=== PATIENT | female | born 1960 | race Caucasian/White ===

== ENCOUNTER 2019-03-07 10:48 | Emergency (ER) | payer MEDICARE, MEDICAID, SELFPAY ==
[2019-03-07 11:17] VITALS: BP 148/97; PULSE 75; RESP 16; TEMP 36.3; O2SAT 96
--- NOTE | 2019-03-07 11:22 | ED_ITS ---
Entered by Yola Ramos, acting as scribe for Mar 07, 2019 10:48 HPI - General Adult General: Chief complaint: Dizziness Stated complaint: N/dizzy, light headed Time Seen by Provider: 03/07/19 11:18 Source: patient Mode of arrival: ambulatory Limitations: no limitations History of Present Illness: HPI narrative: 59 yo female presents with congestion and dizziness. pt states this started 6 days ago but worsened today. pt has had a headache. pt states she was seen at [facility] and they gave her Levaquin on Friday and it has not helped. pt denies any other symptoms at this time. Onset (ago): day(s) (6 days ago) Location: head Pain Consistency: constant Relieving factors: none Exacerbating factors: none Associated symptoms: Reports headache(s); Deny chest pain, dyspnea, nausea, rash or vomiting Treatments prior to arrival: other (Levaquin from PCP) Review of Systems Const: Reports: fever and body aches; Denies: chills Eyes: Denies: change in vision ENMT: Denies: throat pain or mouth pain Card: Denies: chest pain Resp: Reports: non-productive cough and chest congestion; Denies: shortness of breath GI: Denies: abdominal pain, nausea, vomiting or diarrhea : Denies: difficulty urinating Musc: Denies: back pain or joint pain Skin/Breast: Denies: rash Neuro: Reports: headache; Denies: behavioral changes Psych: Denies: depression Endo: Denies: excessive urination Anders/Lymph: Denies: easy bruising All/Imm: Denies: hives PFSH ED PFSH: Statuses (acute, chronic, etc) shown below reflect problem list status as previously entered and may not be historically accurate Social History Smoking and tobacco status: current every day smoker Physical Exam Const: COMMON NORMALS: no apparent distress and healthy appearing HENMT: COMMON NORMALS: normocephalic and external nose normal HEAD & SCALP: normocephalic NOSE: external nose normal and no nasal discharge (nasal dischage) Eye: COMMON NORMALS: PERRL PUPIL: Yes PERRL Neck/C-Spine: COMMON NORMALS: full ROM and no lymphadenopathy Chest: COMMONS NORMALS: inspection of chest normal Resp: COMMON NORMALS: normal respiratory effort and clear to auscultation bilaterally AUSCULTATION: clear to auscultation bilaterally Cardio: COMMON NORMALS: regular rate and regular rhythm RATE: regular rate RHYTHM: regular rhythm GI: COMMON NORMALS: soft to palpation PALPATION: Yes soft Extremity: COMMON NORMALS: normal to inspection, full ROM and normal capillary refill Psych: COMMON NORMALS: mental status grossly normal and cooperative Skin: COMMON NORMALS: no rashes or lesions noted GENERAL SKIN EXAM: no rashes or lesions noted Course Vital Signs: Vital signs: Vital Signs Temperature 97.3 F L 03/07/19 11:17 Pulse Rate 78 03/07/19 13:34 Respiratory Rate 15 03/07/19 13:34 Blood Pressure 119/82 03/07/19 13:34 Pulse Oximetry 98 03/07/19 13:34 MDM - General Adult MDM Narrative: Medical decision making narrative: Patient presents with a headache that is likely tension headache from a sinus infection. Patient is currently on Levaquin and she is to continue. Patient is to continue decongestant for her head congestion. She has no signs of meningitis or subarachnoid hemorrhage. Patient is to follow-up with primary care doctor in 3 to 5 days return if worsening. Lab Data: Labs: Lab Results 03/07/19 03/07/19 Range/Units 11:50 11:50 WBC 6.5 (4.0-10.0) 10^3/ uL RBC 4.58 (4.1-5.3) 10^6/u L Hgb 14.6 (11.5-15.3) g/dL Hct 43.6 (37.0-47.0) % MCV 95.2 (81-99) fL MCH 31.9 (28.0-34.0) pg MCHC 33.5 (30.0-36.0) g/dL RDW 13.0 (12.1-15.1) % Plt Count 237 (130-400) 10^3/c mm MPV 10.7 H (7.4-10.4) fL Neut % (Auto) 62.2 % Lymph % (Auto) 26.9 % [place] % (Auto) 7.4 % Eos % (Auto) 1.9 % Baso % (Auto) 1.1 % Neut # (Auto) 4.0 (1.8-7.7) 10^3/u L Lymph # (Auto) 1.7 (0.8-4.8) 10^3/u L [place] # (Auto) 0.5 (0.2-0.9) 10^3/u L Eos # (Auto) 0.1 (0.0-0.8) 10^3/u L Baso # (Auto) 0.1 (0.0-0.1) 10^3/u L Nucleated RBC % (a uto) 0 % Nucleated RBCs # 0.0 /100WBC Sodium 137 (136-145) mmol/L Potassium 4.4 (3.5-5.1) mmol/L Chloride 101 (98-107) mmol/L Carbon Dioxide 24 (22-29) mmol/L Anion Gap 16.4 (5-19) BUN 14 (8-23) mg/dL Creatinine 0.8 (0.5-0.9) mg/dL GFR Calculation 73.2 L (90-130) mL/min Glucose 129 H (74-106) mg/dL Calcium 10.3 H (8.8-10.2) mg/Dl Total Bilirubin 0.2 (0.15-1.2) mg/dL AST 27 (0-32) U/L ALT 30 (0-33) U/L Alkaline Phosphata se 74 (35-105) IU/L Total Protein 6.6 (6.6-8.7) g/dL Albumin 5.1 (3.5-5.2) g/dL Globulin 1.5 (1.3-4.6) g/dL Discharge Plan Discharge Patient Disposition: Home, Self-Care Clinical Impression: Headache Qualifiers: Headache type: tension-type Headache chronicity pattern: acute headache Intractability: not intractable Qualified Code(s): G44.209 - Tension-type headache, unspecified, not intractable Sinusitis Qualifiers: Sinusitis location: unspecified location Chronicity: acute Recurrence: not specified as recurrent Qualified Code(s): J01.90 - Acute sinusitis, unspecified Condition: Stable Prescriptions: No Action multivitamin Tablet 1 tab PO DAILY RF: 0 cyclobenzaprine 10 mg tablet 10 mg PO TID RF: 0 omeprazole 40 mg capsule,delayed release(DR/EC) 40 mg PO DAILY RF: 0 trazodone 100 mg tablet 100 mg PO BEDTIME RF: 0 levothyroxine 125 mcg tablet 125 mcg PO DAILY RF: 0 indomethacin 50 mg capsule 50 mg PO BID PRN (Reason: GOUT) RF: 0 levofloxacin 500 mg tablet 500 mg PO DAILY RF: 0 vitamin B complex Capsule 1 cap PO DAILY RF: 0 Vitamin D3 1,000 unit Capsule 1,000 unit PO DAILY RF: 0 Discharge Orders: Discharge Order (Routine); Ordered 03/07/19 Ordered By: Trevon Wiggins Referrals: Robert Long, [Family Provider] - 1-3 days Discharge Diet: Advance as tolerated Discharge Activity: Resume usual activity Discharge Date/Time: 03/07/19 13:36 Coding Level of Care Code ED Pasta Maker for Chg Fwd Exam Problem Focused The documentation recorded by the Richard bustillos Bridget Annette, accurately reflects the service I personally performed and the decisions made by Rosalie stone Korby, MD Mar 07, 2019 10:48
--- NOTE | 2019-03-07 11:24 | XRR_ITS ---
PROCEDURE INFORMATION: Exam: XR Chest, 1 View Exam date and time: 03/07/2019 11:25 AM Age: 59 years old Clinical indication: Cough; Patient HX: Smoker TECHNIQUE: Imaging protocol: XR of the chest Views: 1 view. COMPARISON: CR Chest 2 views* [id number] 09/27/2017 3:55 PM FINDINGS: Lungs: Probable COPD with large lung findings. Pleural space: Unremarkable. No pleural effusion. No pneumothorax. Heart/Mediastinum: Unremarkable. No cardiomegaly. Bones/joints: Mild scoliosis. XR/XR chest 1V portable [id number] IMPRESSION: No acute findings.
[2019-03-07 11:30] VITALS: BP 148/97; PULSE 70; RESP 15; O2SAT 96
[2019-03-07] MEDS: ondansetron 2 mg/ML SDV 2 mL 4 MG IVP (11:47)
[2019-03-07] MEDS: sodium chloride 0.9% 1,000 ML 999 ML IV (11:47)
[2019-03-07 12:18] LABS: Basophils # 0.1 10^3/uL (0.0-0.1); Basophils % 1.1 %; Eosinophils # 0.1 10^3/uL (0.0-0.8); Eosinophils % 1.9 %; Hematocrit 43.6 % (37.0-47.0); Hemoglobin 14.6 g/dL (11.5-15.3); Lymphocytes # 1.7 10^3/uL (0.8-4.8); Lymphocytes % 26.9 %; Mean Corpuscular HGB Conc 33.5 g/dL (30.0-36.0); Mean Corpuscular Hemoglobin 31.9 pg (28.0-34.0); Mean Corpuscular Volume 95.2 fL (81-99); Mean Platelet Volume 10.7 fL (7.4-10.4); Monocytes # 0.5 10^3/uL (0.2-0.9); Monocytes % 7.4 %; Neutrophils % 62.2 %; Nucleated Red Blood Cells % 0 %; Platelet Count 237 10^3/cmm (130-400); Red Blood Count 4.58 10^6/uL (4.1-5.3); White Blood Count 6.5 10^3/uL (4.0-10.0)
--- NOTE | 2019-03-07 12:43 | PC.NURSE ---
Patient up to restroom. Patient able to ambulate without difficultly. No urine collection orders at this time.
[2019-03-07 13:00] VITALS: BP 131/89; PULSE 71; RESP 15; O2SAT 96
[2019-03-07 13:04] LABS: Alanine Aminotransferase 30 U/L (0-33); Albumin Level 5.1 g/dL (3.5-5.2); Alkaline Phosphatase 74 IU/L (35-105); Anion Gap 16.4 (5-19); Aspartate Amino Transferase 27 U/L (0-32); Blood Urea Nitrogen 14 mg/dL (8-23); Calcium 10.3 mg/Dl (8.8-10.2); Carbon Dioxide 24 mmol/L (22-29); Chloride 101 mmol/L (98-107); Globulin 1.5 g/dL (1.3-4.6); Glomerular Filtration Rate 73.2 mL/min (90-130); Glucose 129 mg/dL (74-106); Potassium 4.4 mmol/L (3.5-5.1); Sodium 137 mmol/L (136-145); Total Bilirubin 0.2 mg/dL (0.15-1.2); Total Protein 6.6 g/dL (6.6-8.7)
[2019-03-07 13:34] VITALS: BP 119/82; PULSE 78; RESP 15; O2SAT 98
== END 2019-03-07 13:36 | disposition home or self-care (01) ==
PROVIDERS: Emergency Provider Emergency Medicine; Family Provider Family Medicine
DX: J01.90 Acute sinusitis, unspecified (principal); G44.209 Tension-type headache, unspecified, not intractable; F17.210 Nicotine dependence, cigarettes, uncomplicated
CPT/HCPCS: 36415; 71045; 80053; 85025; 96360; 96374; 99281; J2405; J7030

== ENCOUNTER → 2019-12-16 10:45 | Outpatient (BNVA) | payer MEDICARE, MEDICAID, SELFPAY | PROVIDERS: Family Provider Family Medicine; Visit Provider Family Medicine | DX: Z20.828 Contact with and (suspected) exposure to other viral communicable diseases (principal) | CPT/HCPCS: 87635 ==

== ENCOUNTER → 2019-12-28 12:42 | Outpatient (BNVA) | payer MEDICARE, MEDICAID, SELFPAY | PROVIDERS: Family Provider Family Medicine; Visit Provider Internal Medicine Rheumatology | DX: I73.00 Raynaud's syndrome without gangrene (principal); Z79.899 Other long term (current) drug therapy; R76.8 Other specified abnormal immunological findings in serum; M19.041 Primary osteoarthritis, right hand; M19.042 Primary osteoarthritis, left hand; M79.7 Fibromyalgia; R25.2 Cramp and spasm; F17.210 Nicotine dependence, cigarettes, uncomplicated | CPT/HCPCS: 36415; 99203 ==

== ENCOUNTER 2019-12-28 14:22 | Outpatient (CLI) | payer MEDICARE, MEDICAID, SELFPAY ==
--- NOTE | 2019-12-28 14:29 | XR_ITS ---
WS: [id number] HAND LEFT TECHNIQUE: 3 views of the left hand CLINICAL INFORMATION: osteoarthritis COMPARISON: None. FINDINGS: Mild narrowing of the radiocarpal joint. Minimal degenerative arthritis the first CMC. Normal metacar pals. Normal MP joints. No erosive changes. XR/XR hand LT min 3V* [id number] IMPRESSION: Mild degenerative arthritis as described above. Left hand otherwise unremarkabl e.
--- NOTE | 2019-12-28 14:29 | XR_ITS ---
WS: [id number] FOOT LEFT TECHNIQUE: 3 views of the left foot CLINICAL INFORMATION: osteoarthritis COMPARISON: None. FINDINGS: Osteopenia. Normal anatomic alignment. No acute fractures. No significant erosive changes. Minimal IP joint narrowing. Normal calcaneus. Normal plantar soft tissues. XR/XR foot LT min 3V* [id number] IMPRESSION: Unremarkable left foot
--- NOTE | 2019-12-28 14:29 | XR_ITS ---
WS: [id number] FOOT RIGHT TECHNIQUE: 3 views of the right foot CLINICAL INFORMATION: osteoarthritis COMPARISON: None. FINDINGS: Mild hallux valgus. Osteopenia. A few tiny erosions of the metacarpal heads. Minimal IP joint narrowi ng. Hammertoe deformities. Normal calcaneus and plantar soft tissues. XR/XR foot RT min 3V* [id number] IMPRESSION: 1. Mild hallux valgus with osteopenia. 2. A few small erosions involving the metatarsal heads.
--- NOTE | 2019-12-28 14:29 | XR_ITS ---
WS: [id number] HAND RIGHT TECHNIQUE: 3 views of the right hand CLINICAL INFORMATION: osteoarthritis COMPARISON: None. FINDINGS: Mild narrowing of the radiocarpal joint. Normal metacarpals. Advanced asymmetric degenerative narrowi ng involving the second DIP joint with complete loss of joint space and flexion deformity. Mild IP sandro int narrowing involving the fourth DIP joint. XR/XR hand RT min 3V* [id number] IMPRESSION: 1. Advanced asymmetric joint space narrowing involving the second DIP with com plete loss of the joint space and periarticular osteophytes
== END 2019-12-28 14:23 | disposition home or self-care (01) ==
LOC: RADWPI 14:26
PROVIDERS: Family Provider Family Medicine; PCP Family Medicine; Visit Provider Internal Medicine Rheumatology
DX: M19.041 Primary osteoarthritis, right hand (principal); M19.042 Primary osteoarthritis, left hand; Z79.899 Other long term (current) drug therapy; I73.00 Raynaud's syndrome without gangrene; R25.2 Cramp and spasm; R76.8 Other specified abnormal immunological findings in serum; M19.072 Primary osteoarthritis, left ankle and foot; M19.071 Primary osteoarthritis, right ankle and foot; M25.742 Osteophyte, left hand; M20.11 Hallux valgus (acquired), right foot; M85.871 Other specified disorders of bone density and structure, right ankle and foot
CPT/HCPCS: 73130; 73630; 80076; 82306; 82310; 82565; 83735; 84132; 85025; 85651; 86140; 86431

== ENCOUNTER → 2020-02-09 10:29 | Outpatient (BNVA) | payer MEDICARE, MEDICAID, SELFPAY | PROVIDERS: Family Provider Family Medicine; PCP Family Medicine; Visit Provider Internal Medicine Rheumatology | DX: M19.041 Primary osteoarthritis, right hand (principal); M19.042 Primary osteoarthritis, left hand; I73.00 Raynaud's syndrome without gangrene; R76.8 Other specified abnormal immunological findings in serum; M79.7 Fibromyalgia; F17.210 Nicotine dependence, cigarettes, uncomplicated | CPT/HCPCS: 99213 ==

== ENCOUNTER 2020-08-15 10:22 | Outpatient (CLI) | payer MEDICARE, MEDICAID, SELFPAY ==
--- NOTE | 2020-08-15 10:40 | XR_ITS ---
WS: [id number] Exam: XR ribs LT 2V* [id number] Date/Time of Exam: 08/15/2020 10:53 AM Reason For Exam: HX OF ACCIDENTAL FALL/L SIDED RIB PAIN No acute rib fracture or pneumothorax noted. No pleural or pulmonary reactive changes. XR/XR ribs LT 2V* [id number] IMPRESSION: 1. Negative left rib study.
--- NOTE | 2020-08-15 10:40 | XR_ITS ---
WS: [id number] Exam: XR chest 2V* [id number] Date/Time of Exam: 08/15/2020 10:53 AM Reason For Exam: HX OF ACCIDENTAL FALL/L SIDED RIB PAIN The lungs are clear and fully expanded. Normal cardiomediastinal structures. No pleural effusions. Jelani ny structures are intact. Mild thoracic scoliosis. XR/XR chest 2V* [id number] IMPRESSION: 1. No acute cardiopulmonary finding.
== END 2020-08-15 10:23 | disposition home or self-care (01) ==
PROVIDERS: PCP Family Medicine; Visit Provider Nurse Practitioner Family
DX: Z91.81 History of falling (principal); R07.81 Pleurodynia
CPT/HCPCS: 71046; 71100

== ENCOUNTER → 2021-03-13 15:25 | Outpatient (BNVA) | payer MEDICARE, MEDICAID, SELFPAY | PROVIDERS: PCP Family Medicine; Visit Provider Internal Medicine Rheumatology | DX: M15.4 Erosive (osteo)arthritis (principal); I73.00 Raynaud's syndrome without gangrene; Z79.899 Other long term (current) drug therapy; M79.7 Fibromyalgia; F17.200 Nicotine dependence, unspecified, uncomplicated | CPT/HCPCS: 99213; 99214 ==

== ENCOUNTER 2021-04-02 14:50 | Emergency (ER) | payer MEDICARE, MEDICAID, SELFPAY ==
[2021-04-02 15:01] VITALS: BP 107/74; PULSE 97; RESP 20; TEMP 36.8; O2SAT 94; BMI 19.5
--- NOTE | 2021-04-02 15:17 | XR_ITS ---
WS: [id number] XR chest 1V portable [id number] REASON FOR EXAM: cough, sob FINDINGS: The heart and mediastinum within normal limits. Compared to the examination of 08/15/2020, there is an unusual appearing lung opacity(s) in the lower left lower lung field overlying the left costophrenic angle. There is hazy density and a more focal o blong opacity. Mild thoracic scoliosis convex right. XR/XR chest 1V portable [id number] IMPRESSION: Left lower lung abnormality as above . The chronicity is unknown. The etiology and significance is uncertain (very unlikely neoplasm) and PA and lateral chest is recommended. Most likely inflammatory and atelectasis.
== END 2021-04-02 23:11 | disposition left against medical advice (07) ==
PROVIDERS: Emergency Provider Family Medicine; PCP Family Medicine
DX: Z53.21 Procedure and treatment not carried out due to patient leaving prior to being seen by health care provider (principal)
CPT/HCPCS: 71045

== ENCOUNTER 2021-09-11 10:17 | Outpatient (CLI) | payer MEDICARE, MEDICAID, SELFPAY ==
--- NOTE | 2021-09-11 11:44 | PFTS_ITS ---
Date of Study:09/11/21 Date of Dictation: 09/15/2021 MECHANICS: Postbronchodilator forced vital capacity (FVC) is reduced. Postbronchodilator forced expiratory volume in one second (FEV1) is moderately reduced. FEV1/FVC is reduced. There is no significant postbronchodilator response FLOW VOLUME LOOP: Sloping of expiratory limb suggestive of airway obstruction . LUNG VOLUMES: Total lung capacity (TLC) is normal. Residual volume (RV) is increased suggestive of air trapping. DIFFUSING CAPACITY FOR CARBON MONOXIDE: Moderately reduced . INTERPRETATION: The spirometry showed moderate obstructive ventilatory defect. There is no significant postbronchodilator response. Lung volumes suggestive of moderate air trapping. There is moderate gas transfer defect. Clinical correlation recommended. [facility]
== END 2021-09-11 10:18 | disposition home or self-care (01) ==
LOC: RT 10:18
PROVIDERS: PCP Family Medicine; Visit Provider Family Medicine
DX: I73.00 Raynaud's syndrome without gangrene; M79.7 Fibromyalgia; M15.4 Erosive (osteo)arthritis; R06.02 Shortness of breath
CPT/HCPCS: 94060; 94618; 94726; 94729; 99214; J7614

== ENCOUNTER 2021-09-17 07:48 | Outpatient (CLI) | payer MEDICARE, MEDICAID, SELFPAY ==
--- NOTE | 2021-09-17 08:11 | CT_ITS ---
WS: [id number] CT CHEST WITHOUT INTRAVENOUS CONTRAST HISTORY: TACHYCARDIA/CHEST TIGHTNESS TECHNIQUE: Contiguous 5 mm axial imaging performed on the thorax. Coronal and sagittal reformats are submitted. All CT scans at [facility] use at least one of these dose optimization techniques: automated exposure control; mA and/or kV adjustment per patient size (includes targeted exams where dose is matched to clinical indication); or iterative reconstruction. CONTRAST: Omnipaque 350; 75 mL IV. DLP: 480.53 mGy.cm COMPARISON: 07/05/2015, chest radiograph 04/02/2021 Lungs and central airway: Pulmonary hyperexpansion. No pulmonary nodule or mass. No pneumonia. Pleura: Normal. No pleural effusion. Heart and pericardium: Heart is very mildly prominent. No pericardial effusion. There is a small amou nt of pericardial thickening which is unchanged. Mediastinum and lindsay: No adenopathy. Pericardial fluid filled recess posterior to the main pulmonary artery. Vessels: Mildly ectatic thoracic aorta 3.9 cm. Mild atherosclerosis. Normal size pulmonary artery. Chest wall and lower neck: No soft tissue masses. Upper abdomen: Very small hiatal hernia. Liver is enlarged on the localizer extending to the iliac cr est as before. Osseous structures: No destructive process. CT/CT chest w con* [id number] IMPRESSION: 1. Mild emphysema with no pneumonia or mass. 2. Mildly ectatic thoracic aorta with no aneurysm. 3. No pleural effusion. 4. Previously described opacification of the LEFT lung base on the radiograph of 04/02/2021 has resolved.
[2021-09-17 08:54] LABS: Blood Urea Nitrogen 9 mg/dL (8-23); Glomerular Filtration Rate 72.7 mL/min (90-130)
[2021-09-17] MEDS: iohexol 350 mg/mL 100 mL Btl IV (10:12)
== END 2021-09-17 07:49 | disposition home or self-care (01) ==
LOC: RAD 07:49
PROVIDERS: PCP Family Medicine; Visit Provider Family Medicine
DX: R00.0 Tachycardia, unspecified (principal); R06.02 Shortness of breath; R07.89 Other chest pain; J43.9 Emphysema, unspecified
CPT/HCPCS: 71260; 82565; 84520

== ENCOUNTER → 2021-10-08 11:17 | Outpatient (BNVA) | payer MEDICARE, MEDICAID, SELFPAY | PROVIDERS: PCP Family Medicine; Visit Provider Family Medicine | DX: Z79.899 Other long term (current) drug therapy (principal) | CPT/HCPCS: 80048 ==

== ENCOUNTER 2022-02-13 16:53 | Outpatient (CLI) | payer MEDICARE, MEDICAID, SELFPAY ==
--- NOTE | 2022-02-13 17:12 | XRR_ITS ---
PROCEDURE INFORMATION: Exam: XR Sacrum and Coccyx, 2 or More Views Exam date and time: 02/13/2022 5:13 PM Age: 62 years old Clinical indication: Injury or trauma; Blunt trauma (contusions or hematomas); Injury date: 02/13/22; Patient HX: Limb fell on back/tailbone area this morning, pain and numbness tailbone area; Additional info: Limb fell and hit posteror sacrum TECHNIQUE: Imaging protocol: XR of the sacrum and coccyx, inlet and outlet AP, lateral; 3 views. COMPARISON: CT pelvis con [id number] 04/16/2018 1:28 PM FINDINGS: Bones/joints: Normal. No acute fracture. Soft tissues: Normal. XR/XR sacrum coccyx min 2V [id number] IMPRESSION: No acute findings.
== END 2022-02-13 16:54 | disposition home or self-care (01) ==
LOC: RAD 17:00
PROVIDERS: PCP Family Medicine; Visit Provider Family Medicine
DX: M53.3 Sacrococcygeal disorders, not elsewhere classified (principal)
CPT/HCPCS: 72220

== ENCOUNTER → 2022-03-12 10:55 | Outpatient (BNVA) | payer MEDICARE, MEDICAID, SELFPAY | PROVIDERS: PCP Family Medicine; Visit Provider Internal Medicine Rheumatology | DX: M19.041 Primary osteoarthritis, right hand (principal); M19.042 Primary osteoarthritis, left hand; M18.12 Unilateral primary osteoarthritis of first carpometacarpal joint, left hand; I73.00 Raynaud's syndrome without gangrene; M79.7 Fibromyalgia | CPT/HCPCS: 20600; 99214; J1030 ==

== ENCOUNTER → 2022-04-01 09:33 | Outpatient (BNVA) | payer MEDICARE, MEDICAID, SELFPAY | PROVIDERS: PCP Family Medicine; Visit Provider Internal Medicine Rheumatology | DX: M18.12 Unilateral primary osteoarthritis of first carpometacarpal joint, left hand (principal); M19.041 Primary osteoarthritis, right hand; M19.042 Primary osteoarthritis, left hand; Z71.89 Other specified counseling | CPT/HCPCS: 20600; J1030 ==

== ENCOUNTER → 2022-05-16 12:56 | Outpatient (BNVA) | payer MEDICARE, MEDICAID, SELFPAY | PROVIDERS: PCP Family Medicine; Visit Provider Internal Medicine Pulmonary Disease | DX: I73.00 Raynaud's syndrome without gangrene (principal); J44.9 Chronic obstructive pulmonary disease, unspecified; F17.210 Nicotine dependence, cigarettes, uncomplicated | CPT/HCPCS: 99204 ==

== ENCOUNTER 2022-06-14 08:13 | Outpatient (CLI) | payer MEDICARE, MEDICAID, SELFPAY ==
--- NOTE | 2022-06-14 | MR_ITS ---
WS: [id number] MRI LUMBAR SPINE NONCONTRAST HISTORY: VERTEBROGENIC LBP COMPARISON: 04/24/2018 TECHNIQUE: Sagittal and axial multisequence imaging is submitted. Mild curvature thoracic and lumbar spines. Increase in thoracic kyphosis. No marrow edema or fracture. There is slight increased lumbar lordosis. L4 anterolisthesis by 3 mm. M ild progression since 2019. Disc spaces and vertebral body heights are well-preserved. Conus terminates normally at L1. L1-L2: Normal. L2-L3: Very slight annular disc bulging. No stenosis. L3-L4: Mild osteophytic ridging and annular disc bulging. There may be very tiny RIGHT paracentral di sc protrusion best seen on the sagittal imaging. Minimal encroachment into the subarticular recesses and mild ligamentum and flavum hypertrophy. Mild bilateral foraminal stenosis. L4-L5: Diffuse asymmetric disc bulging. Disc extends greatest to the LEFT. There is encroachment upon the ventral thecal sac and subarticular recesses. Near complete effacement of fat in the LEFT forame n. Bilateral facet joint arthritis. Fluid in the facet joints and a small LEFT facet cyst. Moderate c entral, bilateral subarticular recess and RIGHT foraminal stenosis. Severe LEFT foraminal stenosis. L5-S1: Mild annular disc bulging. No significant stenosis. Mild facet arthritis. Paravertebral soft tissues are negative. 10 mm superior pole LEFT renal cyst. There is a cystic struc ture in the RIGHT pelvis. I suspect this is fluid within the cecum. This collection is just inferior and lateral to the lower pole RIGHT kidney. MR/MR lumbar spine wo con* [id number] IMPRESSION: 1. Grade 1 anterolisthesis of L4. 2. Moderate central, bilateral subarticular recess and RIGHT foraminal stenosi s at L4-5 with severe LEFT foraminal stenosis. Most significant encroachment is upon the LEFT L4 and L5 nerve roots. 3. Very minimal central and subarticular recess and foraminal stenosis at L3-4 . 4. Fluid collection in the RIGHT pelvis is most likely fluid distended cecum. Clinically if the patient is having RIGHT pelvic discomfort follow-up CT abdome n and pelvis with IV and oral contrast can be obtained.
== END 2022-06-14 08:14 | disposition home or self-care (01) ==
LOC: RAD 08:16
PROVIDERS: PCP Family Medicine; Visit Provider Nurse Practitioner
DX: M54.51 Vertebrogenic low back pain (principal); M43.16 Spondylolisthesis, lumbar region; M48.061 Spinal stenosis, lumbar region without neurogenic claudication
CPT/HCPCS: 72148

== ENCOUNTER 2022-06-14 08:17 | Outpatient (CLI) | payer MEDICARE, MEDICAID, SELFPAY ==
[2022-06-14 08:40] VITALS: PULSE 69; RESP 18; O2SAT 97
[2022-06-14 08:45] VITALS: PULSE 73
== END 2022-06-14 08:18 | disposition home or self-care (01) ==
LOC: RT 08:22
PROVIDERS: PCP Family Medicine; Visit Provider Internal Medicine Pulmonary Disease
DX: R06.00 Dyspnea, unspecified (principal)
CPT/HCPCS: 94060; 94618; 94726; 94729; J7613

== ENCOUNTER 2022-06-19 08:41 | Outpatient (CLI) | payer MEDICARE, MEDICAID, SELFPAY ==
--- NOTE | 2022-06-19 09:22 | XR_ITS ---
WS: [id number] Lumbar spine with flexion, extension, and neutral lateral, 06/19/2022 Clinical Data: SPONDYLOLISTHESIS LUMBAR REGION Comparison: Lumbar spine, 04/24/2018. Findings: No compression fractures are seen. There is a 0.3 cm anterior subluxation of L4 on L5. No disc space narrowing is seen. No limitation of motion or change in subluxation is seen. There is facet joint arthritis from L4-L5 through L5-S1. XR/XR lumbar spine f/e only [id number] Impression: 1. Anterior subluxation of 0.3 cm of L4 and L5. 2. Facet joint arthritis from L4-L5 through L5-S1. 3. Negative for limitation of motion or change in subluxation on flexion or ext ension.
== END 2022-06-19 08:42 | disposition home or self-care (01) ==
LOC: RAD 09:12
PROVIDERS: PCP Family Medicine; Visit Provider Nurse Practitioner
DX: M43.16 Spondylolisthesis, lumbar region (principal)
CPT/HCPCS: 72120

== ENCOUNTER → 2022-06-25 14:41 | Outpatient (BNVA) | payer MEDICARE, MEDICAID, SELFPAY | PROVIDERS: PCP Family Medicine; Visit Provider Internal Medicine Rheumatology | DX: M19.042 Primary osteoarthritis, left hand (principal) | CPT/HCPCS: 20600; J1030 ==

== ENCOUNTER → 2022-08-13 14:54 | Outpatient (BNVA) | payer MEDICARE, MEDICAID, SELFPAY | PROVIDERS: PCP Family Medicine; Visit Provider Internal Medicine Rheumatology | DX: M18.12 Unilateral primary osteoarthritis of first carpometacarpal joint, left hand (principal) | CPT/HCPCS: 20600; J1030 ==

== ENCOUNTER → 2022-08-16 10:34 | Outpatient (BNVA) | payer MEDICARE, MEDICAID, SELFPAY | PROVIDERS: PCP Family Medicine; Visit Provider Internal Medicine Pulmonary Disease | DX: Z01.811 Encounter for preprocedural respiratory examination (principal); I73.00 Raynaud's syndrome without gangrene; J44.9 Chronic obstructive pulmonary disease, unspecified; M54.9 Dorsalgia, unspecified; F17.210 Nicotine dependence, cigarettes, uncomplicated | CPT/HCPCS: 99214 ==

== ENCOUNTER → 2022-11-18 08:20 | Outpatient (BNVA) | payer MEDICARE, MEDICAID, SELFPAY | PROVIDERS: PCP Family Medicine; Visit Provider Family Medicine | DX: I73.00 Raynaud's syndrome without gangrene (principal); J44.9 Chronic obstructive pulmonary disease, unspecified; M19.041 Primary osteoarthritis, right hand; M19.042 Primary osteoarthritis, left hand; M79.7 Fibromyalgia; R06.00 Dyspnea, unspecified; Z13.6 Encounter for screening for cardiovascular disorders; E55.9 Vitamin D deficiency, unspecified; E03.9 Hypothyroidism, unspecified | CPT/HCPCS: 80053; 80061; 82607; 82652; 84443; 85025 ==

== ENCOUNTER → 2022-12-16 14:31 | Outpatient (BNVA) | payer MEDICARE, MEDICAID, SELFPAY | PROVIDERS: PCP Family Medicine; Visit Provider Internal Medicine Pulmonary Disease | DX: I73.00 Raynaud's syndrome without gangrene (principal); J44.9 Chronic obstructive pulmonary disease, unspecified; F17.210 Nicotine dependence, cigarettes, uncomplicated | CPT/HCPCS: 99214 ==

== ENCOUNTER 2023-05-02 12:19 | Outpatient (CLI) | payer MEDICARE, MEDICAID, SELFPAY ==
--- NOTE | 2023-05-02 12:26 | XR_ITS ---
WS: [id number] Exam: XR chest 2V* [id number] Date/Time of Exam: 05/02/2023 12:47 PM Reason For Exam: left lateral rib pain Comparison 04/02/2021. The lungs are fully inflated and clear. Unremarkable cardiomediastinal silhouette. Minimal dextroscol iosis of the T-spine. No pleural effusion.. IMPRESSION: 1. Negative chest.
== END 2023-05-02 12:20 | disposition home or self-care (01) ==
LOC: RAD 12:21
PROVIDERS: PCP Family Medicine; Visit Provider Clinical Nurse Specialist Adult Health
DX: R07.81 Pleurodynia (principal)
CPT/HCPCS: 71046

== ENCOUNTER 2023-06-10 15:56 | Outpatient (CLI) | payer MEDICARE, MEDICAID, SELFPAY ==
[2023-06-10] MEDS: iohexol 350 mg/mL 500 mL Btl (per mL) PO (16:28)
--- NOTE | 2023-06-10 16:30 | CT_ITS ---
WS: [id number] CT CHEST AND ABDOMEN WITH CONTRAST HISTORY: R10.9 - Unspecified abdominal pain TECHNIQUE: Axial imaging is performed through the chest and abdomen with IV and oral contrast.. Sagit dagoberto and coronal reformats. All CT scans at [facility] use at least one of these dose optimiza tion techniques: automated exposure control; mA and/or kV adjustment per patient size (includes targe corby exams where dose is matched to clinical indication); or iterative reconstruction. CONTRAST: Omnipaque 350; 100 mL IV. DLP: 297.89 mGy.cm COMPARISON: 07/05/2015, chest CT 09/17/[address]: Lungs are clear. No pneumonia. Mild hyperexpansion from emphysema. No mass or pulmonary nodule. Normal size heart. No pericardial or pleural effusions. No mediastinal or hilar adenopathy. Normal thoracic aorta. Normal size pulmonary artery. Bovine arch. Osteopenia. Mild degenerative disc disease. No rib fractures. No destructive bone lesions. Abdomen CT: Liver: Normal size liver. Small subcapsular cyst measures 8 mm inferior RIGHT lobe similar to 09/18/19 22. No bile duct dilatation. Gallbladder: Mildly contracted. No adjacent wall thickening. There is a tiny calcification within the gallbladder lumen. Pancreas: Normal. Spleen: Normal. Right kidney: Negative. Left kidney: Negative. Abdominal aorta: Mild atherosclerosis aorta. No aneurysm. Gastrointestinal tract: Visualized GI tract within the abdomen is negative. Good contrast distention of the stomach. There is no obstruction. Within the visualized colon of the upper abdomen there is mi ld constipation. Along the supraumbilical abdominal wall at the site of the palpable nodule there is a small hernia co ntaining herniated omental fat. No additional soft tissue mass. There is a very tiny defect within th e anterior abdominal wall musculature. Osseous structures: Negative. IMPRESSION: 1. Palpable mass along the anterior abdominal wall corresponds to a supraumbilical hernia containing omental fat. 2. Cholelithiasis without acute cholecystitis. 3. 8 mm subcapsular RIGHT hepatic cyst. 4. No pneumonia. 5. No rib abnormality identified.
[2023-06-10 16:39] LABS: Blood Urea Nitrogen 8 mg/dL (8-23); Glomerular Filtration Rate 55.8 mL/min (90-130)
[2023-06-10] MEDS: iohexol 350 mg/mL 500 mL Btl (per mL) IV (16:44)
== END 2023-06-10 15:57 | disposition home or self-care (01) ==
LOC: RAD 15:56
PROVIDERS: PCP Family Medicine; Visit Provider Family Medicine
DX: R10.9 Unspecified abdominal pain (principal); R07.81 Pleurodynia; K59.00 Constipation, unspecified; K58.9 Irritable bowel syndrome, unspecified; K42.9 Umbilical hernia without obstruction or gangrene; K80.20 Calculus of gallbladder without cholecystitis without obstruction; K76.89 Other specified diseases of liver
CPT/HCPCS: 71260; 74160; 82565; 84520; Q9967

== ENCOUNTER → 2023-07-01 15:05 | Outpatient (BNVA) | payer MEDICARE, MEDICAID, SELFPAY | PROVIDERS: PCP Family Medicine; Visit Provider Internal Medicine Pulmonary Disease | DX: I73.00 Raynaud's syndrome without gangrene (principal); J44.9 Chronic obstructive pulmonary disease, unspecified; F17.210 Nicotine dependence, cigarettes, uncomplicated | CPT/HCPCS: 99214 ==

== ENCOUNTER 2023-07-11 08:18 | Outpatient (CLI) | payer MEDICARE, MEDICAID, SELFPAY ==
--- NOTE | 2023-07-11 08:15 | USCV_ITS ---
[facility] Age: 63 Gender: F : 1960 Exam Date: 07/11/2023 08:23 Ordering Phys: León Mcguire MD Technologist: MATTHEW Exam Location: [facility] [place] Indication: PULM HTN BP: 130 / 74 HR: 63 Rhythm: Sinus Technical Quality: Adequate MEASUREMENTS (Male / Female) Normal Values 2D ECHO LV Diastolic Diameter PLAX 4.0 cm 4.2 - 5.9 / 3.9 - 5.3 cm IVS Diastolic Thickness 0.8 cm 0.6 - 1.0 / 0.6 - 0.9 cm IVS Systolic Thickness 1.5 cm LVPW Diastolic Thickness 1.7 cm 0.6 - 1.0 / 0.6 - 0.9 cm LVPW Systolic Thickness 2.3 cm LVOT Diameter 2.0 cm LV Ejection Fraction 2D Teich 79.1 % LV Ejection Fraction MOD 2C 66.7 % LV Ejection Fraction 2C AL 67.1 % LA Diameter 2.8 cm RA Systolic Volume 4C AL 18.1 ml RA Systolic Volume 4C MOD 17.9 ml LA Sys Volume AL 26.7 cm cubed LA Sys Volume Index AL 18.0 cm cubed/m squared Aorta at Sinotubular Diameter 2.8 cm IVC Diameter 1.4 cm M-MODE LA Ao Ratio MM 0.9 AV Cusp Separation MM 1.5 cm DOPPLER AV Peak Velocity 104.0 cm/s LVOT Peak Velocity 76.0 cm/s AV Area Cont Eq vti 2.8 cm squared AV Area Cont Eq pk 2.3 cm squared MV Peak Velocity 84.0 cm/s MV Area PHT 4.0 cm squared Mitral E to A Ratio 0.9 TR Peak Velocity 236.0 cm/s TR Peak Gradient 22.3 mmHg TR Mean Velocity 208.0 cm/s TR Mean Gradient 17.7 mmHg TR Velocity Time Integral 74.9 cm TV Peak E Velocity 49.0 cm/s Right Atrial Pressure 3.0 mmHg Pulmonary Artery Systolic Pressu 25.3 mmHg PV Peak Velocity 81.0 cm/s RV Ejection Time 0.4 s FINDINGS Left Ventricle Normal left ventricular size and systolic function, EF 67%. . Grade I/IV diastolic dysfunction (abnormal relaxation filling pattern), normal to mildly elevated filling pressures. Right Ventricle The right ventricle is normal in size and function. Right Atrium The right atrium is normal in size. Left Atrium The left atrium is normal in size. Mitral Valve No gross abnormalities noted Aortic Valve No gross abnormalities noted Tricuspid Valve Trace tricuspid valve regurgitation. Pulmonic Valve No gross abnormalities noted Pericardium Normal pericardium without effusion. Aorta Normal ascending aorta dimension. IVC The inferior vena cava appears normal. CONCLUSIONS Normal left ventricular size and systolic function, EF 67%. . Grade I/IV diastolic dysfunction (abnormal relaxation filling pattern), normal to mildly elevated filling pressures. Trace tricuspid valve regurgitation. Estimated pulmonary artery peak systolic pressure 25 mmHg There is no pericardial effusion. There are no intracardiac masses. No similar previous studies are available for comparison Dr Dejon Ospina MD FACC (Electronically Signed) Final Date: 11 Jul 2023 21:33 S
== END 2023-07-11 08:19 | disposition home or self-care (01) ==
LOC: RAD 08:19
PROVIDERS: PCP Family Medicine; Visit Provider Internal Medicine Pulmonary Disease
DX: I27.20 Pulmonary hypertension, unspecified (principal); I07.1 Rheumatic tricuspid insufficiency
CPT/HCPCS: 93306

== ENCOUNTER → 2023-12-04 10:45 | Outpatient (BNVA) | payer MEDICARE, MEDICAID, SELFPAY | PROVIDERS: PCP Family Medicine; Visit Provider Internal Medicine Rheumatology | DX: I73.00 Raynaud's syndrome without gangrene (principal); M19.041 Primary osteoarthritis, right hand; M19.042 Primary osteoarthritis, left hand; M79.7 Fibromyalgia; M18.12 Unilateral primary osteoarthritis of first carpometacarpal joint, left hand | CPT/HCPCS: 99214 ==

== ENCOUNTER → 2024-08-19 13:58 | Outpatient (BNVA) | payer MEDICARE, MEDICAID, SELFPAY | PROVIDERS: PCP Family Medicine; Visit Provider Family Medicine | DX: E03.9 Hypothyroidism, unspecified (principal); R63.4 Abnormal weight loss; K58.9 Irritable bowel syndrome, unspecified; M19.041 Primary osteoarthritis, right hand; M19.042 Primary osteoarthritis, left hand; M79.7 Fibromyalgia; J44.9 Chronic obstructive pulmonary disease, unspecified | CPT/HCPCS: 80053; 82306; 82607; 84443; 84481; 85025 ==

== ENCOUNTER 2024-11-01 05:00 | Outpatient (RCR) | payer MEDICARE, MEDICAID, SELFPAY | END 2024-11-30 23:59 | disposition home or self-care (01) | LOC: SPT 05:00 | PROVIDERS: Visit Provider Surgery | DX: K58.1 Irritable bowel syndrome with constipation (principal) | CPT/HCPCS: 97110; 97162; 97530 ==